=== PATIENT | male | born 1930 | race Caucasian/White ===

== ENCOUNTER → 2016-09-24 | Outpatient (CLI) | payer OTHER ==
[2016-09-24 09:36] LABS: BASO % 0.2 % (0.0-1.0); EOS # 0.1 10*3/uL (0.0-0.4); EOS % 1.4 % (1.0-4.0); HEMATOCRIT 33.5 % (42.0-52.0); HEMOGLOBIN 10.9 g/dl (14.0-18.0); LYMPH # 1.4 10*3/uL (1.3-4.4); LYMPH % 25.4 % (27.0-41.0); MEAN CELL VOLUME 98.2 fl (80.0-94.0); MEAN CORPUSCULAR HGB CONC 32.5 g/dl (33.0-37.0); MEAN PLATELET VOLUME 11.7 fl (9.6-12.3); MONO # 0.6 10*3/uL (0.1-1.0); MONO % 11.2 % (3.0-9.0); NEUT # 3.5 10*3/uL (2.3-7.9); NEUT % 61.6 % (47.0-73.0); PLATELET COUNT AUTOMATED 216 10*3/uL (130-400); RED BLOOD COUNT 3.41 10*6/uL (4.50-5.90); WHITE BLOOD COUNT 5.6 10*3/uL (4.8-10.8)
[2016-09-24 10:06] LABS: ALBUMIN 3.9 gm/dl (3.1-4.5); BILIRUBIN, TOTAL 0.3 mg/dl (0.2-1.0); BUN 15 mg/dl (7-24); CARBON DIOXIDE 30 mmol/L (21-32); CHLORIDE 102 mmol/L (98-107); CHOLESTEROL 99 mg/dL (<200); EST GLOM FILT AFRICAN AMERICAN > 60 ml/min; GLUCOSE 109 mg/dL (65-99); POTASSIUM 3.7 mmol/L (3.5-5.1); SGOT/AST 16 IU/L (3-35); SGPT/ALT 18 U/L (12-78); SODIUM 140 mmol/L (136-145); TOTAL PROTEIN 7.7 gm/dL (6.4-8.2); TRIGLYCERIDES 198 mg/dl (<150); VLDL CHOLESTEROL 40 mg/dL (6-40)
[2016-09-24 10:14] LABS: HEMOGLOBIN A1c 6.6 % (4.8-5.6)
[2016-09-24 10:15] LABS: ALKALINE PHOSPHATASE 57 U/L (45-117); HDL CHOLESTEROL 32 mg/dl (40-60); LDL CHOLESTEROL 27 mg/dL (9-159)
== END | disposition home or self-care (01) ==
LOC: LAB 09-23 12:23
PROVIDERS: Internal Medicine
DX: E78.5 Hyperlipidemia, unspecified (principal); R53.83 Other fatigue; E11.9 Type 2 diabetes mellitus without complications; M25.50 Pain in unspecified joint

== ENCOUNTER → 2017-03-31 | Outpatient (CLI) | payer OTHER ==
[2017-03-31 09:29] LABS: BASO % 0.4 % (0.0-1.0); EOS # 0.1 10*3/uL (0.0-0.4); EOS % 1.1 % (1.0-4.0); HEMATOCRIT 33.7 % (42.0-52.0); LYMPH # 1.1 10*3/uL (1.3-4.4); LYMPH % 21.2 % (27.0-41.0); MEAN CELL VOLUME 98.5 fl (80.0-94.0); MEAN CORPUSCULAR HGB 32.2 pg (27.0-31.0); MEAN CORPUSCULAR HGB CONC 32.6 g/dl (33.0-37.0); MONO # 0.5 10*3/uL (0.1-1.0); MONO % 10.1 % (3.0-9.0); NEUT # 3.5 10*3/uL (2.3-7.9); NEUT % 66.8 % (47.0-73.0); PLATELET COUNT AUTOMATED 182 10*3/uL (130-400); RED BLOOD COUNT 3.42 10*6/uL (4.50-5.90); RED CELL DISTRI WIDTH 13.6 % (0-14.5); WHITE BLOOD COUNT 5.2 10*3/uL (4.8-10.8)
[2017-03-31 09:51] LABS: ALKALINE PHOSPHATASE 53 U/L (45-117); BUN 20 mg/dl (7-24); CHLORIDE 105 mmol/L (98-107); CHOLESTEROL 99 mg/dL (<200); CREATININE 1.28 mg/dL (0.70-1.30); HDL CHOLESTEROL 37 mg/dl (40-60); LDL CHOLESTEROL 35 mg/dL (9-159); POTASSIUM 4.6 mmol/L (3.5-5.1); SGOT/AST 13 IU/L (3-35); SGPT/ALT 17 U/L (12-78); SODIUM 142 mmol/L (136-145); TOTAL PROTEIN 7.6 gm/dL (6.4-8.2); TRIGLYCERIDES 133 mg/dl (<150); VLDL CHOLESTEROL 27 mg/dL (6-40)
== END | disposition home or self-care (01) ==
LOC: LAB 09:00
PROVIDERS: Internal Medicine
DX: E11.9 Type 2 diabetes mellitus without complications (principal); E78.5 Hyperlipidemia, unspecified; R53.83 Other fatigue

== ENCOUNTER → 2017-09-12 | Outpatient (CLI) | payer OTHER ==
[2017-09-12 08:53] LABS: BASO % 0.3 % (0.0-1.0); EOS # 0.1 10*3/uL (0.0-0.4); EOS % 1.7 % (1.0-4.0); HEMATOCRIT 33.3 % (42.0-52.0); LYMPH # 1.3 10*3/uL (1.3-4.4); LYMPH % 20.9 % (27.0-41.0); MEAN CELL VOLUME 97.7 fl (80.0-94.0); MEAN CORPUSCULAR HGB 32.3 pg (27.0-31.0); MEAN PLATELET VOLUME 11.5 fl (9.6-12.3); MONO # 0.7 10*3/uL (0.1-1.0); MONO % 10.2 % (3.0-9.0); NEUT # 4.3 10*3/uL (2.3-7.9); NEUT % 66.7 % (47.0-73.0); PLATELET COUNT AUTOMATED 194 10*3/uL (130-400); RED BLOOD COUNT 3.41 10*6/uL (4.50-5.90); RED CELL DISTRI WIDTH 13.3 % (0-14.5); WHITE BLOOD COUNT 6.4 10*3/uL (4.8-10.8)
[2017-09-12 09:21] LABS: ALBUMIN 3.8 gm/dl (3.1-4.5); ALKALINE PHOSPHATASE 60 U/L (45-117); BUN 17 mg/dl (7-24); CHLORIDE 104 mmol/L (98-107); CHOLESTEROL 105 mg/dL (<200); CREATININE 1.29 mg/dL (0.70-1.30); HDL CHOLESTEROL 32 mg/dl (40-60); LDL CHOLESTEROL 36 mg/dL (9-159); POTASSIUM 4.7 mmol/L (3.5-5.1); SGOT/AST 19 IU/L (3-35); SGPT/ALT 22 U/L (12-78); SODIUM 141 mmol/L (136-145); TOTAL PROTEIN 7.6 gm/dL (6.4-8.2); TRIGLYCERIDES 187 mg/dl (<150); VLDL CHOLESTEROL 37 mg/dL (6-40)
== END | disposition home or self-care (01) ==
LOC: LAB 08:34
PROVIDERS: Internal Medicine
DX: E78.2 Mixed hyperlipidemia (principal); E11.9 Type 2 diabetes mellitus without complications

== ENCOUNTER 2018-12-17 15:37 | Inpatient (IN) | payer OTHER ==
[~2018-12-17] VITALS: Ht 170.1 cm; Wt 72.2 kg
--- NOTE | ~2018-12-17 | EKG ---
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
[2018-12-17 15:38] VITALS: BP 147/62
[2018-12-17 16:34] LABS: HEMATOCRIT 23.5 % (42.0-52.0); HEMOGLOBIN 7.7 g/dl (14.0-18.0); MEAN CELL VOLUME 101.3 fl (80.0-94.0); MEAN CORPUSCULAR HGB 33.2 pg (27.0-31.0); MEAN CORPUSCULAR HGB CONC 32.8 g/dl (33.0-37.0); MEAN PLATELET VOLUME 10.4 fl (9.6-12.3); PLATELET COUNT AUTOMATED 353 10*3/uL (130-400); RED BLOOD COUNT 2.32 10*6/uL (4.50-5.90); RED CELL DISTRI WIDTH 16.6 % (0-14.5); WHITE BLOOD COUNT 7.6 10*3/uL (4.8-10.8)
[2018-12-17 16:43] LABS: BILIRUBIN NEGATIVE (NEGATIVE); BLOOD NEGATIVE (NEGATIVE); CLARITY SL CLOUDY (CLEAR); COLOR YELLOW (YELLOW); GLUCOSE NEGATIVE (NEGATIVE); KETONE NEGATIVE (NEGATIVE); LEUKO ESTERASE 1+ (NEGATIVE); NITRITE NEGATIVE (NEGATIVE); SPECIFIC GRAVITY <= 1.005 (1.005-1.030)
[2018-12-17 16:50] LABS: ALBUMIN 3.8 gm/dl (3.1-4.5); ALKALINE PHOSPHATASE 72 U/L (45-117); BUN 18 mg/dl (7-24); CHLORIDE 101 mmol/L (98-107); CREATININE 1.27 mg/dL (0.70-1.30); LIPASE 85 U/L (73-393); POTASSIUM 4.1 mmol/L (3.5-5.1); SGOT/AST 16 IU/L (3-35); SGPT/ALT 23 U/L (12-78); SODIUM 137 mmol/L (136-145); TOTAL PROTEIN 7.1 gm/dL (6.4-8.2)
[2018-12-17 16:53] LABS: TROPONIN I < 0.015 ng/ml (<0.045)
[2018-12-17 16:54] LABS: TOTAL CELLS COUNTED 100 #CELLS
[2018-12-17 16:55] LABS: OVALOCYTES MODERATE; PLATELET SUFFICIENCY NORMAL (NORMAL)
[2018-12-17 17:35] LABS: BACTERIA TRACE
--- NOTE | 2018-12-17 18:31 | NUR ---
THE PATIENT WAS GIVEN HIS FOOD TRAY
[2018-12-17] MEDS ORDERED: GLIPIZIDE5 MG PO (19:02)
[2018-12-17] MEDS ORDERED: HYDROCHLOROTHIA50 M1 PO (19:02)
--- NOTE | 2018-12-17 19:31 | NUR ---
THE PT DENIES ANY WOUNDS
[2018-12-17 19:33] VITALS: BP 121/56
[2018-12-17 19:50] VITALS: BP 144/60
--- NOTE | 2018-12-17 19:50 | NUR ---
Time: 1947 An 88 year old MALE admitted to under services of RADHA TROTTER DO. Pt. arrived via wheel chair from ER. Chief complaint: Morning nausea with weakness that lasts 15-20 minutes, ongoing since October. PT oriented to unit/room. Questions answered. Initial assessment completed - See Admission Assessment. PT belongings accounted for. Healthy lifestyles guide reviewed. He voices no complaints and denies any needs at the present time. EDGARDO ANTHONY
[2018-12-17 20:00] VITALS: BP 144/60
[2018-12-17] MEDS ORDERED: PLAVIX75 M1 PO (20:06)
[2018-12-17] MEDS ORDERED: GLUCOPHAGE1000 MG PO (20:10)
[2018-12-17] MEDS ORDERED: LISINOPRIL20 MG PO (20:11)
[2018-12-17] MEDS ORDERED: NORVASC2.5 MG PO (20:11)
[2018-12-17] MEDS ORDERED: ZOCOR40 MG PO (20:12)
[2018-12-17] MEDS ORDERED: TOPROL XL50 M1 PO (20:12)
--- NOTE | 2018-12-17 20:45 | NUR ---
DR. Royal SUERO NOTIFIED MED REC IS UP TO DATE WITH PT'S LIST OF MEDICATIONS
[2018-12-18] VITALS: BP 127/62
[2018-12-18 06:18] LABS: HEMATOCRIT 23.7 % (42.0-52.0); HEMOGLOBIN 7.8 g/dl (14.0-18.0); MEAN CORPUSCULAR HGB 32.9 pg (27.0-31.0); MEAN CORPUSCULAR HGB CONC 32.9 g/dl (33.0-37.0); MEAN PLATELET VOLUME 10.7 fl (9.6-12.3); PLATELET COUNT AUTOMATED 333 10*3/uL (130-400); RED BLOOD COUNT 2.37 10*6/uL (4.50-5.90); RED CELL DISTRI WIDTH 16.8 % (0-14.5); WHITE BLOOD COUNT 6.1 10*3/uL (4.8-10.8)
[2018-12-18 06:40] LABS: BUN 18 mg/dl (7-24); CHLORIDE 101 mmol/L (98-107); CHOLESTEROL 87 mg/dL (<200); CREATININE 1.23 mg/dL (0.70-1.30); PHOSPHOROUS 3.3 mg/dL (2.5-4.9); POTASSIUM 3.8 mmol/L (3.5-5.1); SODIUM 136 mmol/L (136-145); TRIGLYCERIDES 221 mg/dl (<150); VLDL CHOLESTEROL 44 mg/dL (6-40)
[2018-12-18 06:48] LABS: HDL CHOLESTEROL 27 mg/dl (40-60); LDL CHOLESTEROL 16 mg/dL (9-159)
[2018-12-18 07:13] LABS: ACT PARTIAL THROMBO TIME 26.8 SECONDS (20.0-32.1); INTERNATIONAL NORM RATIO 0.9 (2.0-3.5)
[2018-12-18 07:39] LABS: OVALOCYTES FEW; PLATELET SUFFICIENCY NORMAL (NORMAL); SCHISTOCYTES FEW; TOTAL CELLS COUNTED 100 #CELLS
[2018-12-18 08:00] VITALS: BP 127/61
--- NOTE | 2018-12-18 09:00 | NUR ---
Pharmacy Analyst in to talk to patient. Patient states lives at home with alone. There are no steps in the home. Physician: christa winters [facility]: [facility] Home health services: none Patient's level of ADLs: INDEPENDENT Patient has working utilities: all working DME: none Follow-up physician's appointment after d/c: will be made by hospitalist nurse director upon discharge Does patient want to access PORTAL?: no Discharge plan discussed with patient patient lives at home alone, he states he is independent in adls and ambulation, drives, patient states he eats a daily meal at [employer] and fixes himself meals the rest of the day. patient states he will be going home when able and denies any home needs. YOUNG MARLEY
[2018-12-18 12:00] VITALS: BP 125/62
[2018-12-18] MEDS ORDERED: PROTONIX40 MG PO (12:11)
--- NOTE | 2018-12-18 13:50 | NUR ---
Discharge instructions reviewed with patient. Patient receptive and verbalizes understanding. Follow-up care arranged. Written instructions given to patient. PATIENT DISCHARGED TO [facility], AMBULATORY, FOR TRANSPORT HOME BY PRIVATE VEHICLE. DEMI STEVEN
[2019-01-01] MEDS ORDERED: METOPROLOL TART50 M1 PO (00:21)
[2019-01-04] MEDS ORDERED: METOPROLOL SUCC25 M2 PO (12:38)
[2019-01-04] MEDS ORDERED: LIPITOR40 MG PO (12:40)
[2019-01-04] MEDS ORDERED: ASPIRIN81 M1 PO (12:40)
[2019-02-13] MEDS ORDERED: MACROBID100 M1 PO (16:58)
== END 2018-12-18 13:50 | disposition home or self-care (01) | DRG 812 ==
LOC: ED 15:37 → 4E 18:50 → EDHOLD 18:50 → 4E 19:01
PROVIDERS: Nurse Practitioner Family; Student in an Organized Health Care Education/Training Program; ADMIT Emergency Medicine
DX: D53.9 Nutritional anemia, unspecified (principal); E53.8 Deficiency of other specified B group vitamins; R11.0 Nausea; E11.65 Type 2 diabetes mellitus with hyperglycemia; I12.9 Hypertensive chronic kidney disease with stage 1 through stage 4 chronic kidney disease, or unspecified chronic kidney disease; E78.5 Hyperlipidemia, unspecified; E11.22 Type 2 diabetes mellitus with diabetic chronic kidney disease; E78.1 Pure hyperglyceridemia; Z86.73 Personal history of transient ischemic attack (TIA), and cerebral infarction without residual deficits; Z82.49 Family history of ischemic heart disease and other diseases of the circulatory system; Z87.891 Personal history of nicotine dependence; Z80.8 Family history of malignant neoplasm of other organs or systems; Z79.899 Other long term (current) drug therapy; Z79.84 Long term (current) use of oral hypoglycemic drugs; Z79.02 Long term (current) use of antithrombotics/antiplatelets

== ENCOUNTER 2019-01-19 11:07 | Emergency (ER) | payer OTHER ==
[~2019-01-19] VITALS: Ht 170.1 cm; Wt 73.0 kg
--- NOTE | ~2019-01-19 | EKG ---
[place], [place] ELECTROCARDIOGRAM REPORT NAME: LIZZ HILL UNIT #: [id number] ROOM: DOCTOR: EPIPHANY DRAFT REPORT BIRTHDATE: [birth year] [facility] Test Date: 2019-01-19 Test Time: 13:59:37 Pat Name: LIZZ HILL Department: Room: 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
--- NOTE | ~2019-01-19 | EKG ---
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: : 1930 Requested By: KEL HILLIARD Order Number: [id number] Reading MD: Ling Henriquez Measurements Intervals [place] Rate: 82 P: 45 WI: 138 QRS: 39 QRSD: 98 T: -10 QT: 360 QTc: 421 Interpretive Statements Sinus rhythm Nonspecific repol abnormality, diffuse leads Compared to ECG 12/31/2018 13:40:40 Early repolarization now present Atrial premature complex(es) no longer present Myocardial infarct finding no longer present ST (T wave) deviation no longer present Electronically Signed On 01-21-2019 8:52:44 PDT by Ling Henriquez CM:EKGRPT:ELECTROCARDIOGRAM REPORT [id number] KEL DHILLON DRAFT REPORT KEL HILLIARD MD
[~2019-01-19 11:07] MED LIST: ASPIRIN81 M1 PO; GLIPIZIDE5 MG PO; GLUCOPHAGE1000 MG PO; HYDROCHLOROTHIA50 M1 PO; LIPITOR40 MG PO; LISINOPRIL20 MG PO; METOPROLOL SUCC25 M2 PO; METOPROLOL TART50 M1 PO; NORVASC2.5 MG PO; PLAVIX75 M1 PO; PROTONIX40 MG PO; TOPROL XL50 M1 PO; ZOCOR40 MG PO
[2019-01-19 11:35] LABS: BASO % 0.2 % (0.0-1.0); EOS % 0.2 % (1.0-4.0); HEMATOCRIT 25.9 % (42.0-52.0); HEMOGLOBIN 8.3 g/dl (14.0-18.0); LYMPH # 3.3 10*3/uL (1.3-4.4); LYMPH % 59.8 % (27.0-41.0); MEAN CELL VOLUME 101.2 fl (80.0-94.0); MEAN CORPUSCULAR HGB 32.4 pg (27.0-31.0); MEAN PLATELET VOLUME 11.1 fl (9.6-12.3); MONO # 0.5 10*3/uL (0.1-1.0); NEUT # 1.7 10*3/uL (2.3-7.9); NEUT % 30.4 % (47.0-73.0); PLATELET COUNT AUTOMATED 290 10*3/uL (130-400); RED BLOOD COUNT 2.56 10*6/uL (4.50-5.90); RED CELL DISTRI WIDTH 18.1 % (0-14.5); WHITE BLOOD COUNT 5.5 10*3/uL (4.8-10.8)
[2019-01-19 11:46] LABS: ACT PARTIAL THROMBO TIME 26.5 SECONDS (20.0-32.1)
[2019-01-19 11:52] LABS: ALBUMIN 3.9 gm/dl (3.1-4.5); ALKALINE PHOSPHATASE 89 U/L (45-117); BUN 14 mg/dl (7-24); CHLORIDE 105 mmol/L (98-107); CREATININE 1.15 mg/dL (0.70-1.30); POTASSIUM 3.9 mmol/L (3.5-5.1); SGOT/AST 22 IU/L (3-35); SGPT/ALT 33 U/L (12-78); SODIUM 138 mmol/L (136-145); TOTAL PROTEIN 7.2 gm/dL (6.4-8.2)
[2019-01-19 11:59] LABS: TROPONIN I < 0.015 ng/ml (<0.045)
[2019-01-19 14:22] LABS: PTH INTACT 160.2 pg/mL (18.5-88.0)
== END 2019-01-19 14:46 | disposition home or self-care (01) ==
LOC: ED 11:07
PROVIDERS: Emergency Medicine
DX: E83.42 Hypomagnesemia (principal); D53.9 Nutritional anemia, unspecified; E83.51 Hypocalcemia; R11.0 Nausea; M79.89 Other specified soft tissue disorders; E11.22 Type 2 diabetes mellitus with diabetic chronic kidney disease; I12.9 Hypertensive chronic kidney disease with stage 1 through stage 4 chronic kidney disease, or unspecified chronic kidney disease; E78.1 Pure hyperglyceridemia; I25.2 Old myocardial infarction; I25.10 Atherosclerotic heart disease of native coronary artery without angina pectoris; Z87.891 Personal history of nicotine dependence; Z79.82 Long term (current) use of aspirin; Z79.899 Other long term (current) drug therapy; N18.9 Chronic kidney disease, unspecified

== ENCOUNTER 2019-02-19 10:46 | Inpatient (IN) | payer OTHER ==
[2019-02-19] VITALS (9 sets, daily range): BP systolic 130–164; BP diastolic 62–77
[~2019-02-19] VITALS: Ht 170.2 cm; Wt 69.4 kg
--- NOTE | ~2019-02-19 | PR ---
[place], [place] PROGRESS NOTE NAME: LIZZ HILL [facility] #: [id number] UNIT #: [id number] ROOM: 411 DOCTOR: FERNANDA VASQUEZ BIRTHDATE: [birth year] DOS: 02/24/2019 CARDIOLOGY PROGRESS NOTE The patient is being seen in followup for non-ST elevation VA. SUBJECTIVE: No overnight events. The patient underwent colonoscopy yesterday. Report was of only tortuous colon, unable to evaluate the whole bowel, but no apparent bleeding was found. The patient continues to deny any complaints. He remains in normal sinus rhythm on the monitor. Hemoglobin was slightly down today to 8.0. OBJECTIVE: VITAL SIGNS: He remains afebrile, pulse of 60, respirations 18. Blood pressure 128/78, saturating 98% on room air. GENERAL APPEARANCE: Older gentleman, sitting up in a chair, in no distress. NECK: Slightly elevated JVP. RESPIRATORY: Lungs are fairly clear. CARDIOVASCULAR: Regular rhythm with normal rate. No murmurs. ABDOMEN: Positive bowel sounds. Soft, nontender. EXTREMITIES: 1-2+ pitting edema bilateral lower extremities. LABORATORY DATA: Hemoglobin 8.0 (down from 9.5 yesterday, 8.8 the previous day. No chemistries from today. CURRENT CARDIAC MEDICATIONS: Include metoprolol succinate 25 mg p.o. daily, lisinopril 20 mg p.o. daily, atorvastatin 40 mg p.o. daily. IMPRESSION: 1. Non-ST elevation myocardial infarction, remained hemodynamically stable and chest pain free, troponin peaked at 1.3. 2. Acute blood loss anemia, hemoglobin slightly down today. 3. History of recent gastrointestinal bleed last month. 4. Gastritis by esophagogastroduodenoscopy. 5. History of recent non-ST elevation myocardial infarction on 01/13/2019. Troponin peaked at 12 at that time and has been treated medically and has not had any invasive coronary angiography. 6. Hypertension, diabetes, history of transient ischemic attack. RECOMMENDATIONS: 1. We will give a dose of IV furosemide and start oral tomorrow because of his lower extremity edema. 2. Awaiting input from GI as far as recommendations for restarting aspirin given the mild drop in hemoglobin, which could be partially related to lab error plus repeated phlebotomy, I will hold off starting any aspirin for the time being. 3. Outpatient followup to decide timing of heart catheterization and possible resumption of antiplatelet agents for medical treatment of his myocardial infarction. Ultimately, he would likely benefit from invasive coronary evaluation depending on his bleeding risk. He seems quite stable and could be [place], [place] PROGRESS NOTE NAME: LIZZ HILL UNIT #: [id number] ROOM: 411 DOCTOR: FERNANDA VASQUEZ BIRTHDATE: [birth year] discharged from cardiology standpoint with close outpatient followup as long as his blood counts tomorrow remain stable. 4. Repeat chemistries in the morning. Dr. FERNANDA VASQUEZ MD CM:PNTRANS [id number] [id number] FERNANDA VASQUEZ 02/25/19 0021 interface
--- NOTE | ~2019-02-19 | CON ---
[place], [place] REPORT OF CONSULTATION [id number] UNIT #: [id number] ROOM: 411 DOCTOR: FERNANDA VSAQUEZ BIRTHDATE: [birth year] DOS: 02/19/2019 REQUESTING PHYSICIAN: Dr. Francois Kaba. REASON FOR CONSULTATION: Chest pain and elevated troponin. HISTORY OF PRESENT ILLNESS: The patient is an 88-year-old gentleman, who was recently admitted to [facility] in December where he presented with GI bleed, and had an NSTEMI with a peak troponin of around 12. After stabilized from a GI standpoint, he underwent ischemic evaluation with a stress test that showed predominantly inferior and inferolateral scar with no ischemia. EF was normal. It was opted that medical management would be pursued as he was not having chest pain at the time. The patient is a poor historian and is evaluated today with his sister, who just flew in from [place] yesterday. The patient states he has not been doing well since his recent hospitalization over the past few weeks. He is frequently weak, and has been having episodes of chest tightness associated with nausea. He says they are usually worse in the morning and he gets better throughout the day. There is no radiation. Today, they were getting in the car to go to a GI appointment, but he began developing severe substernal chest pain, he was diaphoretic according to the sister and was clammy and felt nauseous. He was thus brought to the ER for evaluation. In the ER, he was found to be anemic with a hemoglobin of 6.6, and troponin was 0.070 and went up to 0.682. EKG demonstrated sinus rhythm with slight lateral ST depressions and nonspecific T-wave inversions in anterolateral leads. PAST MEDICAL HISTORY: Hypertension, hyperlipidemia, anemia, history of TIA, type 2 diabetes, and history of GI bleed. PAST SURGICAL HISTORY: Hernia repair. SOCIAL HISTORY: He is a former smoker. Denies alcohol or drug use. FAMILY HISTORY: No history of premature coronary artery disease. ALLERGIES: No known drug allergies. HOME MEDICATIONS: Aspirin 81 mg daily, atorvastatin 40 mg daily, lisinopril 20 mg daily, metformin 1000 mg b.i.d., metoprolol succinate 25 mg daily, nitrofurantoin, pantoprazole 40 mg daily, simvastatin 40 mg daily. PHYSICAL EXAMINATION: VITAL SIGNS: Temperature 97.4, pulse 75, respirations 18, blood pressure 144/62, saturating 93% on room air. GENERAL: He is a well-appearing elderly gentleman, lying in bed, in no distress. ENT: Moist mucous membranes. NECK: Supple. JVP normal. No carotid bruits. RESPIRATORY: Scant basilar rales. [place], [place] REPORT OF CONSULTATION NAME: LIZZ HILL UNIT #: [id number] ROOM: [facility] DOCTOR: FERNANDA VASQUEZ BIRTHDATE: [birth year] CARDIOVASCULAR: Regular rhythm with a normal rate. There are no murmurs. ABDOMEN: Positive bowel sounds. Soft, nontender. No organomegaly. EXTREMITIES: Warm and well perfused. There is 1-2+ pitting edema bilateral lower extremities. SKIN: No lesions or rashes. NEUROLOGICAL: Nonfocal. LABORATORY DATA: Hemoglobin 6.6 (was 7.4 on 02/15/2019), platelets 260. Sodium 134, potassium 4.3, lactic acid 3.4. Troponin 0.070, then 0.682. ProBNP 1681. Myocardial perfusion study from 01/03/2019 showed normal LV function with a large area of reduced uptake in the inferior, inferoseptal and inferolateral anglin with minimal livan-infarct ischemia, EF of 67%. Echocardiogram from 12/2018 showed normal LV systolic function with an EF of 60-65%, mild LVH, grade 1 diastolic dysfunction, inferior wall hypokinesis, no significant valvular disease. IMPRESSION: 1. Non-ST elevation myocardial infarction. 2. Chest pain, concerning for ischemic etiology. 3. Acute blood loss anemia. 4. History of recent gastrointestinal bleed. 5. Gastritis. 6. History of non-ST elevation myocardial infarction 12/2018, with a peak troponin of 12. 7. Hypertension, diabetes, history of transient ischemic attack. RECOMMENDATIONS: 1. The patient is currently chest pain free. Unable to anticoagulate or give antiplatelets because of his ongoing bleeding issues and GI eval is pending. His symptoms are concerning, especially with his known history of coronary artery disease. He has not had an invasive evaluation. We will await full GI workup and recommendations regarding proceeding with cardiac catheterization in terms of bleeding risk, from GI standpoint. Otherwise, continue current cardiac medications. 2. Continue to trend troponin until we see a peak. 3 Blood transfusions per primary team. 4. Aspirin is on hold. Ultimately, I think he will need cardiac catheterization, the timing of which will depend on outcomes of the GI workup. Thank you for the consultation. [place], [place] REPORT OF CONSULTATION NAME: LIZZ HILL Mayra UNIT #: [id number] ROOM: 411 DOCTOR: FERNANDA VASQUEZ BIRTHDATE: [birth year] Dr. FERNANDA VASQUEZ MD CM:CONSTR:REPORT OF CONSULTATION 1609 02/19/19 2880 interface
--- NOTE | ~2019-02-19 | PR ---
[place], [place] PROGRESS NOTE [id number] UNIT #: [id number] ROOM: 411 DOCTOR: FERNANDA VASQUEZ BIRTHDATE: [birth year] DOS: 02/25/2019 The patient is being seen in followup for dzs-YF-hnapbzmvk NE. SUBJECTIVE: This morning, hemoglobin was found to have trended down a little bit, 7.9. He is receiving a unit of blood. Apparently, plan is for discharge after blood transfusion. He continues to deny any complaints at all. No shortness of breath or chest pain. No overt signs of bleeding. Remains in sinus rhythm on telemetry. His edema is a little bit better after starting oral furosemide and a dose of IV yesterday. OBJECTIVE: VITAL SIGNS: Afebrile, pulse 60, respirations 16, blood pressure 114/52, saturating 98% on room air. GENERAL APPEARANCE: Elderly gentleman, sitting up in chair, resting, in no distress. NECK: Supple. JVP normal. No carotid bruits. RESPIRATORY: Lungs are clear. CARDIOVASCULAR: Regular rhythm with a ptbt-nq-ltffae rate. No murmurs. ABDOMEN: Positive bowel sounds. Soft, nontender. EXTREMITIES: Warm, well perfused. Less edema, probably 1+ today. LABORATORY DATA: Hemoglobin 7.9, platelets 228, potassium 3.8, creatinine 0.96. CURRENT CARDIAC MEDICATIONS: Include furosemide 20 mg p.o. daily, metoprolol succinate 25 mg p.o. daily, lisinopril 20 mg p.o. daily and atorvastatin 40 mg p.o. daily. ASSESSMENT: 1. Llo-BB-ofwgwhjlb myocardial infarction, remains asymptomatic, troponin had peaked to 1.3. 2. Acute blood loss anemia, hemoglobin continues to drift down, receiving a unit of blood today. 3. History of recent gastrointestinal bleed last month. 4. Gastritis, by EGD. 5. History of recent non-ST elevation myocardial infarction in 12/2018, with peak troponin of 12 at that time, has been treated medically only. 6. Hypertension, diabetes, history of transient ischemic attack. RECOMMENDATIONS: 1. Continue present medical therapy with the addition of oral furosemide. 2. Will have to be discharged off of any antiplatelet agents given ongoing blood loss. 3. Blood work in a couple of days to check kidney function as well as hemoglobin being arranged by primary team. 4. Outpatient followup with Cardiology in a couple of weeks, we will need to reassess risk appropriateness for heart catheterization given his 2 recent non-ST elevation MIs which we are attempting to treat medically, okay for discharge from cardiac standpoint after his transfusion with close outpatient followup. [place], [place] PROGRESS NOTE NAME: LIZZ HILL Mayra UNIT #: [id number] ROOM: 411 DOCTOR: FERNANDA VASQUEZ BIRTHDATE: [birth year] Dr. FERNANDA VASQUEZ MD CM:PNTRANS 1231 [id number] FERNANDA VASQUEZ 02/25/19 2348 interface
--- NOTE | ~2019-02-19 | CON ---
[place], [place] REPORT OF CONSULTATION NAME: LIZZ HILL [facility] #: [id number] UNIT #: [id number] ROOM: 411 DOCTOR: JOSLYN ARELLANO MD BIRTHDATE: [birth year] DOS: 02/19/2019 GASTROENDOSCOPIC REPORT HISTORY OF PRESENT ILLNESS: An 88-year-old patient who has presented with multiple medical problems, among which has been epigastric distress, near nausea. The patient has been guaiac positive in the Emergency Room. We have been asked for assessment of the patient in this regard. The patient was found to have hemoglobin of 4 and therefore a consultation for GI services. The patient has had endoscopic evaluation done recently, was found to have gastritis on 01/01/2019. His colonoscopy as well has been done at that stage, no carcinoma. His detail was tortuous colon, redundant colon, liquid retained stool reported. Then, he is already telling me that he does not want to have another colonoscopy done. His chest x-ray, mild left basilar infiltrate, chronic pulmonary disease. CBC assessed, H and H of 6 and 20, microcytic mixed picture. Lactic acid 34. PAST MEDICAL HISTORY: Associated hypertension, chronic renal insufficiency, guaiac positivity, Non-STEMI, diabetes mellitus, TIA. PAST SURGICAL HISTORY: Colonoscopies, EGD, hiatal hernia repair. SOCIAL HISTORY: Nonsmoker, nonalcohol consumer, however, in the past he used to smoke. FAMILY HISTORY: Noncontributory. ALLERGIES: No known medications. MEDICATIONS: List was reviewed including aspirin and pantoprazole amongst the other. REVIEW OF SYSTEMS: HEENT: Denies double vision, blurred vision. RESPIRATORY: Denies acute shortness of breath. CARDIOVASCULAR: Denies acute chest pain. DIGESTIVE SYSTEM: Near emesis, nausea. PHYSICAL EXAMINATION: GENERAL: Frail patient. VITAL SIGNS: Stable. HEENT: Within normal limit. NECK: Supple, no thyromegaly. CHEST: Symmetric anatomy, equal expansion, COPD pattern. HEART: Normal sinus rhythm, no gallop, no murmur. ABDOMEN: Soft. No hepato-organomegaly. Bowel sounds present. No pulsatile mass. EXTREMITIES: 3+ pedal edema was noticed bilaterally. NEUROLOGIC: Alert, oriented to time, person. Family accompanying him. [place], [place] REPORT OF CONSULTATION NAME: LIZZ HILL UNIT #: [id number] ROOM: 411 DOCTOR: ADAN BROWN,JOSLYN BIRTHDATE: [birth year] IMPRESSION: Profound anemia, hemoglobin of 4. Recent EGD and colonoscopy. His colonoscopy was not completely clear due to the retained stool; therefore, even if he has occult pathology in there, he is refusing to have another colonoscopy and if he is so, we will see in future if he would agree with a barium enema study as alternative study. Aspirin and Plavix is going to go on hold. Transfusion of 1 unit is going to be on-board. Protonix 40 mg daily is going to happen and clinical reassessment. JOSLYN ARELLANO MD CM:CONSTR:REPORT OF CONSULTATION 1444 02/20/19 0122 interface
--- NOTE | ~2019-02-19 | PR ---
[place], [place] PROGRESS NOTE NAME: LIZZ HILL [facility] #: [id number] UNIT #: [id number] ROOM: 411 DOCTOR: FERNANDA VASQUEZ BIRTHDATE: [birth year] DOS: 02/20/2019 CARDIOLOGY PROGRESS NOTE The patient is being seen in followup for a non-ST elevation myocardial infarction. SUBJECTIVE: The patient feels well today. Denies any chest pain or shortness of breath. Hemoglobin was noted to be 7.4 today after his blood transfusion. Troponin seems as topped out at about 1.29, it was 1.23 earlier this morning. He remained in sinus rhythm on the monitor. OBJECTIVE: VITAL SIGNS: Afebrile, pulse 65, respirations 18, blood pressure 130/56, saturating 100% on room air. GENERAL APPEARANCE: Elderly male, sitting up in chair, in no distress. NECK: Supple. JVP normal. No carotid bruits. RESPIRATORY: Lungs are clear. CARDIOVASCULAR: Regular rhythm with a normal rate. No murmurs. ABDOMEN: Positive bowel sounds. Soft, nontender. EXTREMITIES: Warm, well perfused. 1-2+ pitting edema, improved from yesterday. LABORATORY DATA: Hemoglobin 7.4, platelets 281. Potassium 3.8, creatinine 1.03. CURRENT CARDIAC MEDICATIONS: Include metoprolol succinate 25 mg p.o. daily, lisinopril 20 mg p.o. daily, atorvastatin 40 mg p.o. daily, furosemide 20 mg IV was given yesterday. Echocardiogram repeated on this admission interpreted by me today shows normal LV systolic function with an EF of 55-60% with hypokinesis of the basal inferior wall with mild concentric LVH. There is mild mitral regurgitation and mild dilation of the left atrium. IMPRESSION: 1. Non-ST elevation myocardial infarction, currently chest pain free and troponin peaked at 1.3. 2. Chest pain, concerning for ischemic etiology. 3. Acute blood loss anemia. 4. History of recent gastrointestinal bleed. 5. Gastritis by esophagogastroduodenoscopy earlier this month. 6. History of recent non-ST elevation myocardial infarction in December 2018 with a peak troponin of 12 at that time. 7. Hypertension, diabetes, history of transient ischemic attack. RECOMMENDATIONS: 1. The patient is being evaluated by GI for possible repeat endoscopy. Apparently, the patient is refusing repeat colonoscopy, there was incomplete visualization due to retained stool on the study last month. 2. Because of issues and concerns of ongoing bleeding, I would be very hesitant [place], [place] PROGRESS NOTE NAME: LIZZ HILL UNIT #: [id number] ROOM: [facility] DOCTOR: FERNANDA VASQUEZ BIRTHDATE: [birth year] to send him for any sort of invasive cardiac catheterization at this time. Anti-platelets will be continued to be on hold. Certainly once again better sense about his bleeding, that we can weigh the risks and benefits of proceeding with left heart catheterization, which I do think he will ultimately require when the risk is reasonable to do so. In the meantime, we will continue to treat medically. We will await the results of the GI evaluation. He continues to be chest pain free at this time and hemodynamically stable. We will continue to closely monitor. Dr. FERNANDA VASQUEZ MD CM:PNTRANS 1642 0009 FERNANDA VASQUEZ 02/21/19 0008 interface
--- NOTE | ~2019-02-19 | EKG ---
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
--- NOTE | ~2019-02-19 | EKG ---
[place], [place] ELECTROCARDIOGRAM REPORT NAME: LIZZ HILL UNIT #: [id number] ROOM: 411 DOCTOR: JACQUIE DRAFT REPORT BIRTHDATE: [birth year] [facility] [place] Test Date: 2019-02-19 Test Time: 17:57:35 Pat Name: LIZZ HILL Department: Room: 411 Gender: M Guide Tour: Yarelis More : 1930 Requested By: RADHA SUERO Order Number: [id number] Reading MD: Mick Rios MD Measurements Intervals [place] Rate: 74 P: 36 MA: 150 QRS: 45 QRSD: 91 T: 25 QT: 445 QTc: 494 Interpretive Statements Sinus rhythm Probable LVH with secondary repol abnrm ST depression consider anterolateral ischemia Borderline prolonged QT interval Electronically Signed On 02-21-2019 4:17:22 PDT by Mick Rios MD CM:EKGRPT:ELECTROCARDIOGRAM REPORT [id number] RADHA MCBRIDE DRAFT REPORT RADHA SUERO DO
--- NOTE | ~2019-02-19 | PR ---
[place], [place] PROGRESS NOTE NAME: LIZZ HILL UNIT #: [id number] ROOM: 411 DOCTOR: FERNANDA VASQUEZ BIRTHDATE: [birth year] DOS: 02/22/2019 CARDIOLOGY PROGRESS NOTE The patient will be seen in followup for non-ST elevation IA. SUBJECTIVE: The patient states he feels great, the best he has felt. Denies any chest pain or shortness of breath. He is awaiting a colonoscopy tomorrow. OBJECTIVE: VITAL SIGNS: He is afebrile, pulse in the 60s, respirations 16, blood pressure 113/54, saturating 96% on room air. GENERAL APPEARANCE: Elderly male sitting up in a chair, in no distress. NECK: Supple. JVP normal. No carotid bruits. RESPIRATORY: Lungs are clear. CARDIOVASCULAR: Regular rhythm with a normal rate. No murmurs. ABDOMEN: Positive bowel sounds. Soft, nontender. EXTREMITIES: 1+ pitting edema in the bilateral lower extremities. LABORATORY DATA: Hemoglobin 8.8, platelets 275. Potassium 3.3, creatinine 0.95. Current cardiac medications include metoprolol succinate 25 mg daily, lisinopril 20 mg daily, atorvastatin 40 mg daily. Remained in sinus rhythm on telemetry. No further episodes of nonsustained VT. IMPRESSION: 1. Non-ST elevation myocardial infarction, remains chest pain free. Troponin peaked at 1.3. 2. Chest pain, resolved. 3. Acute blood loss anemia. 4. History of recent gastrointestinal bleed. 5. Gastritis by esophagogastroduodenoscopy. 6. History of recent non-ST elevation myocardial infarction in 12/2018 with a peak troponin of 12 at that time, treated medically. 7. Hypertension, diabetes, history of transient ischemic attack. RECOMMENDATIONS: 1. Continue medical treatment for his myocardial infarction. 2. Resume aspirin when okay from GI. 3. Colonoscopy tomorrow. 4. Would likely benefit from heart catheterization down the road once bleeding issues have stabilized. Overall, he looks quite well and does not require any immediate invasive cardiac evaluation. [place], [place] PROGRESS NOTE NAME: LIZZ HILL UNIT #: [id number] ROOM: 411 DOCTOR: FERNANDA VASQUEZ BIRTHDATE: [birth year] Dr. FERNANDA VASQUEZ MD CM:PNTRANS [phone] FERNANDA VASQUEZ 02/22/19 2257 interface
--- NOTE | ~2019-02-19 | O ---
[place], [place] O[facility]ATIVE NOTE [id number] UNIT #: [id number] ROOM: 411 DOCTOR: ADAN BROWN,JOSLYN BIRTHDATE: [birth year] DOS: GASTROENDOSCOPIC REPORT INDICATIONS: An 88-year-old patient who has presented with anemia, undergoing investigation. PROCEDURE: Today's procedure part of investigation is panendoscopy plus biopsy. PREMEDICATION: Propofol. SCOPE: Olympus forward-viewing gastroscope Q10 video. REPORT: After putting the patient in left lateral position and application of lubricant to the scope, the scope was introduced. Thereafter, under direct visualization, advanced through the length of esophagus into gastric pouch into duodenal bulb. Mild gastritis seen of no concern. Mild antral biopsy obtained for H. pylori. The patient extubated after hiatal hernia confirmed. IMPRESSION: Small hiatal hernia, gastritis of mild degree. PLAN AND DISCUSSION: The patient need to have a colonoscopy because his colonic prep was previously incomplete. PLAN AND DISCUSSION: Case discussed with the family, we will have to try to see if they can convince him to have endoscopy done, again after re-preparation of the colon. Otherwise, discussed that perhaps source of blood loss secondary to blood thinners on board and coronary artery disease issues and this decision is impending discussion of the family with the patient. JOSLYN ARELLANO MD CM:OPRECORD:OPERATIVE NOTE [id number] JOSLYN ARELLANO MD 02/21/19 1224 interface
--- NOTE | ~2019-02-19 | PR ---
[place], [place] PROGRESS NOTE NAME: LIZZ HILL [facility] #: [id number] UNIT #: [id number] ROOM: 411 DOCTOR: FERNANDA VASQUEZ BIRTHDATE: [birth year] DOS: 02/23/2019 The patient is being seen in followup for non-ST elevation [place]. SUBJECTIVE: The patient feels well. He continues to deny any episodes of chest pain or shortness of breath. He remained in sinus rhythm on the monitor. He is scheduled for colonoscopy this afternoon. OBJECTIVE: VITAL SIGNS: He is afebrile, pulse 59, respirations 16, blood pressure 131/49, saturating 100% on room air. GENERAL APPEARANCE: Older gentleman, sitting up in chair, in no distress. NECK: Supple. JVP normal. No carotid bruits. RESPIRATORY: Lungs are fairly clear. CARDIOVASCULAR: Regular rhythm with njo-zp-zjwkpi rate. There are no murmurs. ABDOMEN: Positive bowel sounds. Soft, nontender. EXTREMITIES: He has 1 to 2+ pitting edema in the lower extremities. Of note, he is currently receiving IV fluids as he is n.p.o. for his colonoscopy. LABORATORY DATA: Hemoglobin 9.5, platelets 281. Potassium 4.0, BUN 12, creatinine 1.0. CURRENT CARDIAC MEDICATIONS: Include metoprolol succinate 25 mg p.o. daily, lisinopril 20 mg p.o. daily, atorvastatin 40 mg p.o. daily. IMPRESSION: 1. Non-ST elevation myocardial infarction, remains stable and chest pain free. Peak troponin 1.3. 2. Acute blood loss anemia, hemoglobin stable after transfusion. 3. History of recent gastrointestinal bleed. 4. Gastritis by esophagogastroduodenoscopy. 5. History of recent non-ST elevation myocardial infarction 12/2018, with a peak troponin of 12, treated medically. 6. Hypertension, diabetes, history of transient ischemic attack. RECOMMENDATIONS: 1. Continue present medical therapy for treatment of his myocardial infarction. 2. Resume aspirin when okay from GI standpoint. 3. Colonoscopy for later today. 4. We will follow up as an outpatient for discussion of risks, appropriateness, and timing of potential cardiac catheterization given multiple recent MIs. No indications for urgent invasive evaluation as he is doing quite well at this point. [place], [place] PROGRESS NOTE NAME: LIZZ HILL UNIT #: [id number] ROOM: 411 DOCTOR: FERNANDA VASQUEZ BIRTHDATE: [birth year] DrLida VASQUEZ MD CM:PNSTUART [id number] FERNANDA VASQUEZ 02/24/19 0031 interface
--- NOTE | ~2019-02-19 | EKG ---
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
--- NOTE | ~2019-02-19 | PR ---
[place], [place] PROGRESS NOTE NAME: LIZZ HILL [facility] #: [id number] UNIT #: [id number] ROOM: 411 DOCTOR: FERNANDA VASQUEZ BIRTHDATE: [birth year] DOS: 02/21/2019 CARDIOLOGY PROGRESS NOTE The patient is being seen in followup for non-ST elevation [place]. SUBJECTIVE: The patient feels well, denying any chest pain. He underwent EGD today, which apparently showed some gastritis and hiatal hernia. He is being planned for a repeat colonoscopy on Tuesday, which he is not thrilled about but understands the importance of. He had an episode of about 5 or 6 beats of nonsustained VT on the monitor yesterday. Otherwise, in sinus rhythm. A repeat echocardiogram from yesterday was essentially unchanged from the one not too long ago. It showed preserved EF with basal inferior wall hypokinesis. OBJECTIVE: VITAL SIGNS: Afebrile, pulse 72, respirations 18, blood pressure 132/58, saturating 97% on room air. GENERAL APPEARANCE: Elderly male sitting up inside of the bed, in no distress. NECK: Supple. JVP normal. No carotid bruits. RESPIRATORY: Lungs are clear. CARDIOVASCULAR: Regular rhythm with a normal rate. No murmurs. ABDOMEN: Positive bowel sounds. Soft and nontender. EXTREMITIES: Still with some 1+ pitting edema in the bilateral lower extremities. LABORATORY DATA: Hemoglobin is 9.3 up from 7.4 yesterday after blood transfusion, platelets 268. Potassium 3.9, creatinine 1.13. MEDICATIONS: Current cardiac medications include metoprolol succinate 50 mg daily, lisinopril 20 mg daily, atorvastatin 40 mg daily. IMPRESSION: 1. Non-ST elevation myocardial infarction, currently chest pain free with a peak troponin of 1.3. 2. Chest pain. 3. Acute blood loss anemia. 4. History of recent gastrointestinal bleed. 5. Gastritis by EGD earlier this month, and repeated today. 6. History of recent non-ST elevation myocardial infarction in 12/2018, peak troponin of 12 at that time. 7. Hypertension, diabetes, history of a transient ischemic attack. RECOMMENDATIONS: 1. Continue present medical therapy. 2. Resume aspirin when okay from GI. 3. He is awaiting a repeat colonoscopy with a 2-day prep planned for Tuesday. 4. No immediate plans for heart catheterization, MS is to be treated medically given the bleeding risk. Consider cardiac catheterization down the road when bleeding issues have stabilized and been better characterized. Ideally would like to get him back on aspirin as soon as it is safe to do so. We will await [place], [place] PROGRESS NOTE NAME: LIZZ HILL UNIT #: [id number] ROOM: 411 DOCTOR: FERNANDA VASQUEZ BIRTHDATE: [address] FERNANDA VASQUEZ MD CM:PNTRANS [id number] FERNANDA VASQUEZ 02/22/19 0325 interface
--- NOTE | ~2019-02-19 | O ---
[place], [place] OPERATIVE NOTE NAME: LIZZ HILL UNIT #: [id number] ROOM: 411 DOCTOR: JOSLYN ARELLANO MD BIRTHDATE: [birth year] DOS: 02/23/2019 INDICATIONS: The patient has presented with anemia, undergoing investigation. PROCEDURE: Today's procedure part of investigation is colonoscopy. PREMEDICATION: Propofol. SCOPE: Olympus forward-viewing colonoscope 10L video. REPORT: After putting the patient in left lateral position and application of lubricant to the scope, the scope was introduced; thereafter direct visualization, advanced through the length of colon with extreme difficulty due to redundancy of colon and tortuosity of colon at the point of advancement of colon above 130 cm, I felt this may lead to perforation. After several tries, the patient extubated, tolerated the procedure well. IMPRESSION: Extreme redundancy and tortuosity of colon. PLAN AND DISCUSSION: We will make barium enema as outpatient followup. JOSLYN ARELLANO MD CM:OPRECORD:OPERATIVE NOTE [id number] JOSLYN ARELLANO MD 03/02/19 1004 interface
[~2019-02-19 10:46] MED LIST changes: +MACROBID100 M1 PO
[2019-02-19 11:09] LABS: MEAN CORPUSCULAR HGB 33.3 pg (27.0-31.0); MEAN PLATELET VOLUME 10.1 fl (9.6-12.3); PLATELET COUNT AUTOMATED 260 10*3/uL (130-400); RED BLOOD COUNT 1.98 10*6/uL (4.50-5.90); WHITE BLOOD COUNT 4.6 10*3/uL (4.8-10.8)
[2019-02-19 11:19] LABS: ACT PARTIAL THROMBO TIME 26.5 SECONDS (20.0-32.1)
[2019-02-19 11:23] LABS: ALBUMIN 3.9 gm/dl (3.1-4.5); ALKALINE PHOSPHATASE 79 U/L (45-117); BUN 20 mg/dl (7-24); CHLORIDE 102 mmol/L (98-107); CREATININE 1.27 mg/dL (0.70-1.30); POTASSIUM 4.3 mmol/L (3.5-5.1); SGOT/AST 14 IU/L (3-35); SGPT/ALT 21 U/L (12-78); SODIUM 134 mmol/L (136-145); TOTAL PROTEIN 6.9 gm/dL (6.4-8.2)
[2019-02-19 11:24] LABS: LIPASE 89 U/L (73-393)
--- NOTE | 2019-02-19 11:28 | NUR ---
TROPONIN 0.070, LA 3.4 DR SUERO NOTIFIED.
[2019-02-19 11:31] LABS: OVALOCYTES FEW; PLATELET SUFFICIENCY NORMAL (NORMAL); POLYCHROMASIA SLIGHT; SCHISTOCYTES FEW; TOTAL CELLS COUNTED 100 #CELLS
[2019-02-19 11:33] LABS: HEMATOCRIT 20.6 % (42.0-52.0); HEMOGLOBIN 6.6 g/dl (14.0-18.0)
--- NOTE | 2019-02-19 11:34 | NUR ---
HGB 6.6 DR SUERO NOTIFIED
--- NOTE | 2019-02-19 11:37 | NUR ---
IN ROOM VISITING WITH FAMILY AT BEDSIDE. NO DISTRESS.
--- NOTE | 2019-02-19 12:17 | NUR ---
PT GIVEN WATER PER HIS REQUEST AND DR NIMO TAYLOR.
[2019-02-19 12:32] LABS: BILIRUBIN NEGATIVE (NEGATIVE); BLOOD NEGATIVE (NEGATIVE); CLARITY SL CLOUDY (CLEAR); COLOR YELLOW (YELLOW); GLUCOSE NEGATIVE (NEGATIVE); KETONE 2+ (NEGATIVE); LEUKO ESTERASE NEGATIVE (NEGATIVE); NITRITE NEGATIVE (NEGATIVE); PH 5.5 (5.0-9.0); UROBILINOGEN 0.2 E.U./dl (0.2-1.0)
--- NOTE | 2019-02-19 13:06 | NUR ---
A 88, admitted to 4E, under the services of MARIE Mitchell DO with a diagnosis of ANEMIA AND ACUTE GASTRITIS. Chief complaint is NAUSEA AND WEAKNESS. Patient arrived via ambulance from ER. Monitor applied. Initial assessment completed. Vital signs taken and recorded. MARIE MITCHELL DO notified of admission to the unit. Orders received. See assessment for past medical history, medications and allergies. Patient and/or family oriented to unit. visitation policy reviewed. Clothing/patient valuable form completed. CARLENE LEWIS
[2019-02-19 13:18] LABS: BACTERIA 2+; RBC 16-20 rbc/hpf (0-2)
--- NOTE | 2019-02-19 14:08 | NUR ---
Dr. Brower notified of consult.
--- NOTE | 2019-02-19 20:08 | NUR ---
PATIENT RESTING IN BED WITH NO NEEDS MADE. BED IN LOWEST POSITION, CALL LIGHT IN REACH
--- NOTE | 2019-02-19 21:00 | NUR ---
SPOKE WITH DR BLAIR REGARDING PATIENT NOT RECEIVING LASIX AFTER BLOOD WAS FINISHED INFUSING. STATES TO GIVE THE BLOOD, AND START TOPROL AND LISINOPRIL TONIGHT.
[2019-02-19 21:45] LABS: HEMATOCRIT 24.2 % (42.0-52.0); HEMOGLOBIN 8.1 g/dl (14.0-18.0)
--- NOTE | 2019-02-19 23:19 | NUR ---
24 HR chart check completed.
[2019-02-20] VITALS (9 sets, daily range): BP systolic 121–147; BP diastolic 51–71
--- NOTE | 2019-02-20 02:00 | NUR ---
PATIENT RESTING IN BED WITH NO S/S OF DISTRESS. BED IN LOWEST POSITION, CALL LIGHT IN REACH
--- NOTE | 2019-02-20 05:21 | NUR ---
DR BLAIR AWARE OF CRITICAL TROPONIN
[2019-02-20 05:29] LABS: BUN 19 mg/dl (7-24); CHLORIDE 103 mmol/L (98-107); CREATININE 1.03 mg/dL (0.70-1.30); POTASSIUM 3.8 mmol/L (3.5-5.1); SODIUM 138 mmol/L (136-145)
[2019-02-20 06:03] LABS: HEMATOCRIT 22.5 % (42.0-52.0); HEMOGLOBIN 7.4 g/dl (14.0-18.0); MEAN CORPUSCULAR HGB 32.7 pg (27.0-31.0); MEAN CORPUSCULAR HGB CONC 32.9 g/dl (33.0-37.0); MEAN PLATELET VOLUME 11.3 fl (9.6-12.3); PLATELET COUNT AUTOMATED 281 10*3/uL (130-400); RED BLOOD COUNT 2.26 10*6/uL (4.50-5.90); RED CELL DISTRI WIDTH 21.1 % (0-14.5); WHITE BLOOD COUNT 7.7 10*3/uL (4.8-10.8)
[2019-02-20 06:13] LABS: MEAN CELL VOLUME 99.6 fl (80.0-94.0)
[2019-02-20 07:13] LABS: PLATELET SUFFICIENCY NORMAL (NORMAL); TOTAL CELLS COUNTED 100 #CELLS
--- NOTE | 2019-02-20 09:00 | NUR ---
Medical Device in to talk to patient. Patient states lives at home with alone. There are few steps in the home. Physician: christa winters [facility]: [facility] Home health services: none Patient's level of ADLs: INDEPENDENT Patient has working utilities: all working DME: none Follow-up physician's appointment after d/c: will be made by hospitalist nurse director upon discharge Does patient want to access PORTAL?: no Discharge plan discussed with patient, family member present, he lives in [facility], he states he is independent in adls and ambulation, he states he takes a cab where ever he needs to go, he eats at [employer] Tuesday, Tuesday and Tuesday and fixes his own meals the rest of the time, he states he will return home when medically stable and denies any home needs. YOUNG MARLEY
--- NOTE | 2019-02-20 19:47 | NUR ---
OK TO GIVE LASIX PER BLOOD POLICY AND H&H FOR MIDNIGHT PER DR SIMON
--- NOTE | 2019-02-20 20:38 | NUR ---
CALLED DR ARELLANO REGARDING PATIENT BEING AGREEABLE TO HAVING AN EGD TOMORROW. DR ARELLANO STATES EGD TOMORROW, NPO AT MIDNIGHT.
--- NOTE | 2019-02-20 20:51 | NUR ---
DR SIMON AWARE OF GREEN SLIME COMING OUT OF PATIENT'S LEFT EYE
--- NOTE | 2019-02-20 20:51 | NUR ---
DR SIMON AWARE OF GREEN MUCUS COMING FROM PATIENT'S LEFT EYE
[2019-02-21] VITALS (7 sets, daily range): BP systolic 115–151; BP diastolic 34–61
[2019-02-21 00:13] LABS: HEMATOCRIT 27.7 % (42.0-52.0); HEMOGLOBIN 9.3 g/dl (14.0-18.0)
--- NOTE | 2019-02-21 03:43 | NUR ---
PATIENT RESTING IN BED WITH NO S/S OF DISTRESS. BED IN LOWEST POSITION, CALL LIGHT IN REACH
[2019-02-21 06:31] LABS: HEMOGLOBIN 9.3 g/dl (14.0-18.0); MEAN CELL VOLUME 96.6 fl (80.0-94.0); MEAN CORPUSCULAR HGB 32.1 pg (27.0-31.0); MEAN CORPUSCULAR HGB CONC 33.2 g/dl (33.0-37.0); MEAN PLATELET VOLUME 10.4 fl (9.6-12.3); PLATELET COUNT AUTOMATED 268 10*3/uL (130-400); RED CELL DISTRI WIDTH 20.8 % (0-14.5); WHITE BLOOD COUNT 7.8 10*3/uL (4.8-10.8)
[2019-02-21 06:44] LABS: BUN 19 mg/dl (7-24); CHLORIDE 100 mmol/L (98-107); CREATININE 1.13 mg/dL (0.70-1.30); POTASSIUM 3.9 mmol/L (3.5-5.1); SODIUM 136 mmol/L (136-145)
--- NOTE | 2019-02-21 07:00 | NUR ---
ARRIVED ON SHIFT, INTRODUCED TO PATIENT, BEDSIDE REPORT RECEIVED, PATIENT IS NPO, NO NEEDS VOICED AT THIS TIME. WHITE BOARD UPDATED.
[2019-02-21 07:37] LABS: OVALOCYTES FEW; PLATELET SUFFICIENCY NORMAL (NORMAL); TOTAL CELLS COUNTED 100 #CELLS
--- NOTE | 2019-02-21 07:56 | NUR ---
Shift chart check completed.
--- NOTE | 2019-02-21 09:00 | NUR ---
case management visits with patient, he states he will be returning home when medically stable and denies any home needs
--- NOTE | 2019-02-21 12:50 | NUR ---
CALL PLACED TO DR. ARELLANO TO ADVISE THAT PATIENT IS AGRREABLE FOR COLONOSCOPY ON TUESDAY, ORDER RECEIVED FOR DULCLAX 15MG TODAY, MAG-CITRATE @1800 TODAY, CLEAR LIQUID DIET EFFECTIVE TODAY, THEN NPO AFTER MIDNIGHT TOMORROW. BMP TOMORROW AM.
[2019-02-22] VITALS: BP 113/54; BP 131/61
[2019-02-22 05:55] LABS: BUN 16 mg/dl (7-24); CHLORIDE 104 mmol/L (98-107); CREATININE 0.95 mg/dL (0.70-1.30); POTASSIUM 3.3 mmol/L (3.5-5.1); SODIUM 137 mmol/L (136-145)
[2019-02-22 07:48] LABS: HEMATOCRIT 26.8 % (42.0-52.0); HEMOGLOBIN 8.8 g/dl (14.0-18.0); MEAN CELL VOLUME 98.9 fl (80.0-94.0); MEAN CORPUSCULAR HGB 32.5 pg (27.0-31.0); MEAN CORPUSCULAR HGB CONC 32.8 g/dl (33.0-37.0); MEAN PLATELET VOLUME 11.3 fl (9.6-12.3); PLATELET COUNT AUTOMATED 275 10*3/uL (130-400); RED BLOOD COUNT 2.71 10*6/uL (4.50-5.90); RED CELL DISTRI WIDTH 20.7 % (0-14.5)
[2019-02-22 08:11] LABS: TOTAL CELLS COUNTED 100 #CELLS
[2019-02-22 08:12] LABS: ACANTHOCYTES FEW; OVALOCYTES FEW; PLATELET SUFFICIENCY NORMAL (NORMAL)
[2019-02-22 08:13] LABS: SCHISTOCYTES FEW
--- NOTE | 2019-02-22 09:00 | NUR ---
case management visits with patient, he states he will be returning home when medically stable, denies any home needs
[2019-02-22 11:43] VITALS: BP 128/53
[2019-02-22 16:00] VITALS: BP 140/57
[2019-02-22 20:00] VITALS: BP 137/48
[2019-02-23] VITALS (7 sets, daily range): BP systolic 111–160; BP diastolic 42–87
[2019-02-23 06:57] LABS: HEMATOCRIT 28.9 % (42.0-52.0); HEMOGLOBIN 9.5 g/dl (14.0-18.0); MEAN CELL VOLUME 99.7 fl (80.0-94.0); MEAN CORPUSCULAR HGB 32.8 pg (27.0-31.0); MEAN CORPUSCULAR HGB CONC 32.9 g/dl (33.0-37.0); MEAN PLATELET VOLUME 10.7 fl (9.6-12.3); PLATELET COUNT AUTOMATED 281 10*3/uL (130-400); RED CELL DISTRI WIDTH 20.1 % (0-14.5); WHITE BLOOD COUNT 6.6 10*3/uL (4.8-10.8)
[2019-02-23 07:19] LABS: ALBUMIN 3.9 gm/dl (3.1-4.5); ALKALINE PHOSPHATASE 85 U/L (45-117); BUN 12 mg/dl (7-24); CHLORIDE 102 mmol/L (98-107); SGOT/AST 21 IU/L (3-35); SGPT/ALT 28 U/L (12-78); SODIUM 136 mmol/L (136-145)
[2019-02-23 08:00] LABS: ATYPICAL LYMPHS 1 % (0-0); TOTAL CELLS COUNTED 100 #CELLS
[2019-02-23 08:01] LABS: BURR CELLS FEW; PLATELET SUFFICIENCY NORMAL (NORMAL); POLYCHROMASIA SLIGHT
[2019-02-23 08:10] LABS: OVALOCYTES FEW
--- NOTE | 2019-02-23 09:00 | NUR ---
case management visits with patient, he is having a procedure today and stated he will be returning home when medically stable. patient denies any home needs at this time
--- NOTE | 2019-02-23 14:33 | NUR ---
PATIENT TO SURGERY AT THIS TIME.NO VERBAL COMPLAINTS OR SIGNS OF DISTRESS
--- NOTE | 2019-02-23 18:49 | NUR ---
PATIENT STILL IN SURGERY.
[2019-02-24] VITALS: BP 138/60
[2019-02-24 06:55] LABS: HEMATOCRIT 24.5 % (42.0-52.0); MEAN CELL VOLUME 99.2 fl (80.0-94.0); MEAN CORPUSCULAR HGB 32.4 pg (27.0-31.0); MEAN CORPUSCULAR HGB CONC 32.7 g/dl (33.0-37.0); PLATELET COUNT AUTOMATED 243 10*3/uL (130-400); RED BLOOD COUNT 2.47 10*6/uL (4.50-5.90); RED CELL DISTRI WIDTH 19.9 % (0-14.5); WHITE BLOOD COUNT 6.7 10*3/uL (4.8-10.8)
[2019-02-24 07:54] LABS: PLATELET SUFFICIENCY NORMAL (NORMAL); TOTAL CELLS COUNTED 100 #CELLS
[2019-02-24 08:00] VITALS: BP 128/78
--- NOTE | 2019-02-24 09:51 | NUR ---
DR TELLEZ ROUNDED AND SEEN PT DAUGHTER UPDATED ON PLAN OF CARE BY DR TELLEZ. PT SITTING UP IN CHAIR AT BEDSIDE.RESPS EASY ON RA. DAUGHTER VISITING AT BEDSIDE.CALL LIGHT IN REACH.
--- NOTE | 2019-02-24 10:34 | NUR ---
PT DAUGHTER REQUESTING LINEN CHANGE. COMPLETE LINEN CHANGE AND FRESH TOWELS PROVIDED.
--- NOTE | 2019-02-24 11:38 | NUR ---
DR VASQUEZ ROUNDED AND SEEN PT.
[2019-02-24 12:00] VITALS: BP 119/58; BP 146/59
[2019-02-24 16:00] VITALS: BP 119/50
[2019-02-24 20:00] VITALS: BP 129/51
[2019-02-25] VITALS (9 sets, daily range): BP systolic 114–143; BP diastolic 50–74
[2019-02-25 05:55] LABS: BUN 14 mg/dl (7-24); CHLORIDE 103 mmol/L (98-107); CREATININE 0.96 mg/dL (0.70-1.30); POTASSIUM 3.8 mmol/L (3.5-5.1); SODIUM 140 mmol/L (136-145)
[2019-02-25 06:06] LABS: HEMATOCRIT 23.7 % (42.0-52.0); HEMOGLOBIN 7.9 g/dl (14.0-18.0); MEAN CELL VOLUME 99.2 fl (80.0-94.0); MEAN CORPUSCULAR HGB 33.1 pg (27.0-31.0); MEAN CORPUSCULAR HGB CONC 33.3 g/dl (33.0-37.0); MEAN PLATELET VOLUME 11.1 fl (9.6-12.3); PLATELET COUNT AUTOMATED 228 10*3/uL (130-400); RED BLOOD COUNT 2.39 10*6/uL (4.50-5.90); RED CELL DISTRI WIDTH 19.9 % (0-14.5)
[2019-02-25 06:41] LABS: BASOPHILS 1 % (0-1); TOTAL CELLS COUNTED 100 #CELLS
[2019-02-25 06:42] LABS: PLATELET SUFFICIENCY NORMAL (NORMAL)
--- NOTE | 2019-02-25 11:00 | NUR ---
Informed consent obtained from patient for Blood transfussion by Dr. TELLEZ. Patient identified by arm band. Vital signs recorded. Blood unit number verified by 2 R.N.'s. I.V. site satisfactory. Unit 1 started at a KVO rate with Normal Saline. JR BINGHAM
[2019-02-25] MEDS ORDERED: FUROSEMIDE40 MG PO (12:36)
--- NOTE | 2019-02-25 13:41 | NUR ---
I UNIT PRBC'S TRANSFUSED AND COMPLETED WITHOUT DIFFICULTY.PT TOLERATED WELL. VOICES NO NEEDS CALL LIGHT IN REACH.
--- NOTE | 2019-02-25 14:32 | NUR ---
Discharge instructions reviewed with patient/family. Patient receptive and verbalizes understanding. Follow-up care arranged. Written instructions given to patient/family. JR BINGHAM
== END 2019-02-25 14:32 | disposition home or self-care (01) | DRG 377 ==
LOC: ED 10:46 → EDHOLD 12:23 → 4E 12:23
PROVIDERS: Emergency Medicine; Hospitalist; Internal Medicine; Internal Medicine Gastroenterology; ADMIT Internal Medicine
PROC: 30233N1 Transfusion of Nonautologous Red Blood Cells into Peripheral Vein, Percutaneous Approach (ICD-10-PCS; principal; 2019-02-19)
PROC: 0DB78ZX Excision of Stomach, Pylorus, Via Natural or Artificial Opening Endoscopic, Diagnostic (ICD-10-PCS; 2019-02-21)
PROC: 0DJD8ZZ Inspection of Lower Intestinal Tract, Via Natural or Artificial Opening Endoscopic (ICD-10-PCS; 2019-02-23)
DX: K29.01 Acute gastritis with bleeding (principal); I21.4 Non-ST elevation (NSTEMI) myocardial infarction; J18.9 Pneumonia, unspecified organism; D62 Acute posthemorrhagic anemia; E87.2 Acidosis; E87.1 Hypo-osmolality and hyponatremia; Q43.8 Other specified congenital malformations of intestine; I13.10 Hypertensive heart and chronic kidney disease without heart failure, with stage 1 through stage 4 chronic kidney disease, or unspecified chronic kidney disease; I34.0 Nonrheumatic mitral (valve) insufficiency; E11.65 Type 2 diabetes mellitus with hyperglycemia; R82.71 Bacteriuria; K44.9 Diaphragmatic hernia without obstruction or gangrene; E78.5 Hyperlipidemia, unspecified; N18.9 Chronic kidney disease, unspecified; I25.10 Atherosclerotic heart disease of native coronary artery without angina pectoris; E78.1 Pure hyperglyceridemia; E11.22 Type 2 diabetes mellitus with diabetic chronic kidney disease; D53.9 Nutritional anemia, unspecified; E53.8 Deficiency of other specified B group vitamins; Z86.73 Personal history of transient ischemic attack (TIA), and cerebral infarction without residual deficits; I25.2 Old myocardial infarction; Z87.440 Personal history of urinary (tract) infections; Z87.891 Personal history of nicotine dependence; Z82.49 Family history of ischemic heart disease and other diseases of the circulatory system; Z80.8 Family history of malignant neoplasm of other organs or systems; Z79.899 Other long term (current) drug therapy; Z79.82 Long term (current) use of aspirin

== ENCOUNTER → 2019-02-28 | Outpatient (CLI) | payer OTHER ==
[~2019-02-28] MED LIST changes: +FUROSEMIDE40 MG PO
[2019-02-28 09:31] LABS: HEMATOCRIT 27.9 % (42.0-52.0); HEMOGLOBIN 9.1 g/dl (14.0-18.0); MEAN CELL VOLUME 98.9 fl (80.0-94.0); MEAN CORPUSCULAR HGB 32.3 pg (27.0-31.0); MEAN CORPUSCULAR HGB CONC 32.6 g/dl (33.0-37.0); MEAN PLATELET VOLUME 11.3 fl (9.6-12.3); PLATELET COUNT AUTOMATED 276 10*3/uL (130-400); RED BLOOD COUNT 2.82 10*6/uL (4.50-5.90); WHITE BLOOD COUNT 4.8 10*3/uL (4.8-10.8)
[2019-02-28 09:47] LABS: ALBUMIN 3.6 gm/dl (3.1-4.5); ALKALINE PHOSPHATASE 87 U/L (45-117); BUN 18 mg/dl (7-24); CHLORIDE 103 mmol/L (98-107); CREATININE 1.13 mg/dL (0.70-1.30); POTASSIUM 4.3 mmol/L (3.5-5.1); SGOT/AST 28 IU/L (3-35); SGPT/ALT 46 U/L (12-78); SODIUM 135 mmol/L (136-145); TOTAL PROTEIN 6.8 gm/dL (6.4-8.2)
[2019-02-28 09:56] LABS: ACANTHOCYTES FEW; OVALOCYTES FEW; PLATELET SUFFICIENCY NORMAL (NORMAL); ROULEAUX SLIGHT; SCHISTOCYTES FEW; TOTAL CELLS COUNTED 100 #CELLS
== END | disposition home or self-care (01) ==
LOC: RESCLI 01:49
PROVIDERS: Internal Medicine
DX: D50.0 Iron deficiency anemia secondary to blood loss (chronic) (principal); I10 Essential (primary) hypertension; E11.9 Type 2 diabetes mellitus without complications; E78.2 Mixed hyperlipidemia; R53.1 Weakness; Z79.899 Other long term (current) drug therapy; Z88.8 Allergy status to other drugs, medicaments and biological substances

== ENCOUNTER → 2019-03-05 | Outpatient (CLI) | payer OTHER ==
[2019-03-05 13:40] LABS: HEMATOCRIT 27.8 % (42.0-52.0); HEMOGLOBIN 9.1 g/dl (14.0-18.0); MEAN CELL VOLUME 98.9 fl (80.0-94.0); MEAN CORPUSCULAR HGB 32.4 pg (27.0-31.0); MEAN CORPUSCULAR HGB CONC 32.7 g/dl (33.0-37.0); MEAN PLATELET VOLUME 10.3 fl (9.6-12.3); PLATELET COUNT AUTOMATED 250 10*3/uL (130-400); RED BLOOD COUNT 2.81 10*6/uL (4.50-5.90); WHITE BLOOD COUNT 7.5 10*3/uL (4.8-10.8)
[2019-03-05 13:59] LABS: OVALOCYTES FEW; PLATELET SUFFICIENCY NORMAL (NORMAL); TOTAL CELLS COUNTED 100 #CELLS
== END | disposition home or self-care (01) ==
LOC: RESCLI 12:21
PROVIDERS: Internal Medicine Nephrology
DX: D50.0 Iron deficiency anemia secondary to blood loss (chronic) (principal); I10 Essential (primary) hypertension; E11.9 Type 2 diabetes mellitus without complications; I25.2 Old myocardial infarction; K29.70 Gastritis, unspecified, without bleeding; R53.1 Weakness; Z79.899 Other long term (current) drug therapy; Z87.891 Personal history of nicotine dependence

== ENCOUNTER → 2019-03-12 | Outpatient (CLI) | payer OTHER | END | disposition home or self-care (01) | LOC: RAD 13:46 | DX: D50.0 Iron deficiency anemia secondary to blood loss (chronic) (principal); E11.9 Type 2 diabetes mellitus without complications; I10 Essential (primary) hypertension; I25.2 Old myocardial infarction; K29.70 Gastritis, unspecified, without bleeding; R53.1 Weakness; J69.0 Pneumonitis due to inhalation of food and vomit ==

== ENCOUNTER → 2019-04-12 | Outpatient (CLI) | payer OTHER ==
[2019-04-12 11:24] LABS: HEMATOCRIT 28.4 % (42.0-52.0); HEMOGLOBIN 9.4 g/dl (14.0-18.0); MEAN CELL VOLUME 94.4 fl (80.0-94.0); MEAN CORPUSCULAR HGB 31.2 pg (27.0-31.0); MEAN CORPUSCULAR HGB CONC 33.1 g/dl (33.0-37.0); MEAN PLATELET VOLUME 10.4 fl (9.6-12.3); PLATELET COUNT AUTOMATED 335 10*3/uL (130-400); RED BLOOD COUNT 3.01 10*6/uL (4.50-5.90); RED CELL DISTRI WIDTH 18.4 % (0-14.5); WHITE BLOOD COUNT 7.1 10*3/uL (4.8-10.8)
[2019-04-12 11:46] LABS: ATYPICAL LYMPHS 1 % (0-0); OVALOCYTES MODERATE; PLATELET SUFFICIENCY NORMAL (NORMAL); SCHISTOCYTES FEW; TOTAL CELLS COUNTED 100 #CELLS
== END | disposition home or self-care (01) ==
LOC: LAB 11:11
PROVIDERS: Nurse Practitioner
DX: C91.90 Lymphoid leukemia, unspecified not having achieved remission (principal); D64.9 Anemia, unspecified

== ENCOUNTER → 2019-05-03 | Outpatient (CLI) | payer OTHER ==
[2019-05-03 12:09] LABS: HEMATOCRIT 28.7 % (42.0-52.0); HEMOGLOBIN 9.5 g/dl (14.0-18.0); MEAN CELL VOLUME 93.8 fl (80.0-94.0); MEAN CORPUSCULAR HGB CONC 33.1 g/dl (33.0-37.0); MEAN PLATELET VOLUME 10.8 fl (9.6-12.3); PLATELET COUNT AUTOMATED 229 10*3/uL (130-400); RED BLOOD COUNT 3.06 10*6/uL (4.50-5.90); RED CELL DISTRI WIDTH 17.4 % (0-14.5); WHITE BLOOD COUNT 5.7 10*3/uL (4.8-10.8)
[2019-05-03 12:30] LABS: OVALOCYTES FEW; PLATELET SUFFICIENCY NORMAL (NORMAL); SCHISTOCYTES FEW; TOTAL CELLS COUNTED 100 #CELLS
== END | disposition home or self-care (01) ==
LOC: LAB 11:51
PROVIDERS: Nurse Practitioner
DX: C91.90 Lymphoid leukemia, unspecified not having achieved remission (principal); D64.9 Anemia, unspecified

== ENCOUNTER → 2019-05-10 | Outpatient (CLI) | payer OTHER ==
[2019-05-10 12:17] LABS: HEMATOCRIT 26.9 % (42.0-52.0); HEMOGLOBIN 8.7 g/dl (14.0-18.0); MEAN CELL VOLUME 94.1 fl (80.0-94.0); MEAN CORPUSCULAR HGB 30.4 pg (27.0-31.0); MEAN CORPUSCULAR HGB CONC 32.3 g/dl (33.0-37.0); MEAN PLATELET VOLUME 11.3 fl (9.6-12.3); PLATELET COUNT AUTOMATED 302 10*3/uL (130-400); RED BLOOD COUNT 2.86 10*6/uL (4.50-5.90); RED CELL DISTRI WIDTH 17.5 % (0-14.5); WHITE BLOOD COUNT 6.1 10*3/uL (4.8-10.8)
[2019-05-10 12:49] LABS: ACANTHOCYTES MODERATE; PLATELET SUFFICIENCY NORMAL (NORMAL); TOTAL CELLS COUNTED 100 #CELLS
== END | disposition home or self-care (01) ==
LOC: LAB 11:08
PROVIDERS: Nurse Practitioner
DX: C91.90 Lymphoid leukemia, unspecified not having achieved remission (principal); D64.9 Anemia, unspecified